=== PATIENT | female | born 1985 | race African-American/Black ===

== ENCOUNTER 2024-08-20 02:07 | Inpatient (IN) | payer SELFPAY ==
[~2024-08-20] VITALS: Ht 175.3 cm; Wt 79.8 kg
[2024-08-20] MEDS: LORAZEPAM 2MG/ML INJ IM STA (02:36)
[2024-08-20] MEDS: DIPHENHYDRAMINE 50MG/ML VIAL IM STA (02:36)
[2024-08-20] MEDS: HALOPERIDOL LACTATE 5MG/ML VIAL IM STA (02:36)
[2024-08-20] MEDS: LORAZEPAM 2MG/ML INJ IM ONE (03:17)
[2024-08-20] MEDS: OLANZAPINE 10 MG/VIAL IM ONE (03:17)
[2024-08-20] MEDS: SODIUM CHLORIDE 0.9% 1,000 ML IV ONE (04:05)
[2024-08-20 04:22] LABS: BASOPHILS % 0.7 % (0.0-2.0); EOSINOPHILS % 0.9 % (0.0-5.0); HEMATOCRIT. 37.1 % (36.0-48.0); LYMPHOCYTES % 12.8 % (20.0-50.0); MEAN CORPUSCULAR HEMOGLOBIN 29.6 pg (28.0-32.0); MEAN CORPUSCULAR HGB CONC 32.5 g/dL (31.0-37.0); MEAN CORPUSCULAR VOLUME 91.3 fL (81.0-99.0); MEAN PLATELET VOLUME 8.8 fl (7.4-10.4); MONOCYTES % 4.1 % (2.0-8.0); NEUTROPHILS % 81.5 % (40.0-76.0); PLATELET 299 x1000/uL (130-400); RED BLOOD CELL COUNT 4.06 mill/uL (4.2-5.4); RED CELL DISTRIBUTION WIDTH 16.9 % (11.6-14.6); WHITE BLOOD COUNT 12.2 x1000/uL (4.5-11.0)
[2024-08-20 04:30] LABS: *AMPHETAMINES SCREEN URINE PRESUMPTIVE POSITIVE (NEGATIVE); *BARBITURATES SCREEN URINE NEGATIVE (NEGATIVE); *BENZODIAZEPINES SCREEN URINE NEGATIVE (NEGATIVE); *COCAINE SCREEN URINE PRESUMPTIVE POSITIVE (NEGATIVE); METHADONE URINE SCREEN NEGATIVE (NEGATIVE); OPIATES URINE SCREEN NEGATIVE (NEGATIVE)
[2024-08-20 04:31] LABS: CANNABINOID URINE SCREEN PRESUMPTIVE POSITIVE (NEGATIVE); ECSTASY MDMA SCREEN URINE CONF.TEST INDICATED (NEGATIVE); PHENCYCLIDINE URINE SCREEN PRESUMTIVE POSITIVE (NEGATIVE)
[2024-08-20 04:36] LABS: CHLORIDE 108 mEq/L (98-107); POTASSIUM 3.9 mEq/L (3.5-5.1); SODIUM 141 mEq/L (136-145)
[2024-08-20 04:37] LABS: CALCIUM 9.7 mg/dL (8.7-10.4); CARBON DIOXIDE 23 mEq/L (21-32)
[2024-08-20 04:42] LABS: CREATININE 0.9 mg/dL (0.6-1.0); UREA NITROGEN BLOOD 15 mg/dL (9-23)
[2024-08-20 04:43] LABS: TROPONIN I HIGH SENSITIVITY 8 ng/L (3.0-34)
[2024-08-20 04:44] LABS: ACETAMINOPHEN < 2 ug/mL (10-30); ALANINE AMINOTRANSFERASE 23 IU/L (10-49); ALBUMIN 4.8 g/dL (3.2-4.8); ASPARTATE AMINOTRANSFERASE 50 IU/L (<34); BILIRUBIN TOTAL 0.4 mg/dL (0.1-1.0); PROTEIN TOTAL 8.4 g/dL (6.0-8.3)
[2024-08-20 04:50] LABS: ETHANOL BLOOD < 10 mg/dL (<10)
[2024-08-20 04:54] LABS: GLUCOSE 41 mg/dL (70-105)
[2024-08-20 04:55] LABS: CREATINE KINASE 2578 IU/L (34-145)
[2024-08-20] MEDS: DEXTROSE 50% WATER 50ML SYRINGE IV ONE (05:01)
[2024-08-20 05:04] LABS: CLARITY URINE CLOUDY (CLEAR); COLOR URINE DARK YELLOW (YELLOW); GLUCOSE URINE NEGATIVE (NEGATIVE); KETONES URINE 2+ (NEGATIVE); LEUKOCYTE ESTERASE URINE NEGATIVE (NEGATIVE); NITRITE URINE NEGATIVE (NEGATIVE); OCCULT BLOOD URINE 3+ (NEGATIVE); PROTEIN URINE 2+ (NEGATIVE); SPECIFIC GRAVITY URINE 1.034 (1.005-1.030)
[2024-08-20 05:05] LABS: HCG SCREEN NEGATIVE
[2024-08-20 05:55] VITALS: O2SAT 99
[2024-08-20 07:19] LABS: SQUAMOUS EPITHELIAL CELL URINE 1+ /lpf (RARE/1+)
[2024-08-20 07:20] LABS: WBC URINE 0-2 /hpf (0-2)
[2024-08-20 07:21] LABS: RBC URINE 50-100 /hpf (0-2)
[2024-08-20 07:22] LABS: BACTERIA URINE NONE SEEN; CALCIUM OXALATE CRYSTALS URINE 1+ /lpf
[2024-08-20] MEDS ORDERED: CLONIDINE 0.1MG TABLET PO PRN (09:45)
[2024-08-20] MEDS ORDERED: IPRATROPIUM/ALBUTEROL 0.5-3(2.5)MG/3ML NEB HHN PRN (09:45)
[2024-08-20] MEDS ORDERED: MAGNESIUM/ALUMINUM HYDROXIDE/SIMETHICONE 30ML UDC PO PRN (09:45)
[2024-08-20] MEDS ORDERED: ONDANSETRON HCL 4MG/2ML INJ IV PRN (09:45)
[2024-08-20] MEDS ORDERED: DOCUSATE SODIUM 100MG CAPSULE PO PRN (09:45)
[2024-08-20] MEDS ORDERED: HYDROCODONE/ACETAMINOPHEN 5/325MG TABLET PO PRN (09:45)
[2024-08-20] MEDS ORDERED: ACETAMINOPHEN 325MG TABLET PO PRN ×2 (09:45)
[2024-08-20] MEDS ORDERED: GUAIFENESIN 200MG/10ML SUGAR FREE UDC PO PRN (09:45)
[2024-08-20] MEDS ORDERED: LORAZEPAM 2MG/ML INJ IV PRN (09:45)
[2024-08-20] MEDS: ENOXAPARIN 40MG/0.4ML SYR SUBCUT SCH (10:15)
[2024-08-20] MEDS: SODIUM CHLORIDE 0.9% 1,000 ML IV SCH (10:16)
[2024-08-20] MEDS: INSULIN LISPRO 100 UNITS/ML SUBCUT SCH (13:20)
[2024-08-20] MEDS: BLOOD SUGAR DIAGNOSTIC STRIP TEST SCH (13:38)
[2024-08-20] MEDS ORDERED: DEXT 5% WATER 500 ML IV NR (14:00)
[2024-08-20] MEDS ORDERED: LORAZEPAM 2MG/ML INJ IM PRN (17:00)
[2024-08-20] MEDS: DEXTROSE 50% WATER 50ML SYRINGE IV PRN (18:00)
[2024-08-20] MEDS: DEXT 5%/0.9% NACL 1,000 ML IV SCH (18:02)
[2024-08-20] MEDS: MVI, ADULT NO.1 10 ML, FOLIC ACID 1 MG, THIAMINE HCL 100 MG in SODIUM CHLORIDE 0.9% 1,0... IV SCH (18:54)
[2024-08-21] VITALS: BP 167/99; PULSE 129; RESP 24; TEMP 36.83628; O2SAT 99
[2024-08-21 04:00] VITALS: BP 152/65; PULSE 129; RESP 20; TEMP 36.6696; O2SAT 98
[2024-08-21 06:22] VITALS: BP 152/65; PULSE 67; RESP 22; TEMP 36.696
[2024-08-21 12:00] VITALS: BP 143/88; PULSE 71; RESP 19; TEMP 36.72516; O2SAT 98
[2024-08-21 16:00] VITALS: BP 144/78; PULSE 81; RESP 18; TEMP 36.05844; O2SAT 97
[2024-08-21 20:00] VITALS: BP 146/83; PULSE 73; RESP 20; TEMP 36.3918; O2SAT 98
[2024-08-22] VITALS: BP 146/71; PULSE 72; RESP 16; TEMP 37.11408; O2SAT 99
[2024-08-22 04:00] VITALS: BP 142/74; PULSE 65; RESP 17; TEMP 36.61404; O2SAT 100
== END 2024-08-22 13:45 | disposition home or self-care (01) | DRG 812 ==
LOC: ER 02:12 → 5WST 06:57 → 7WST 08-21 07:59 → 6EST 08-21 22:05
PROVIDERS: ADMIT Hospitalist; ATTEND Hospitalist
DX: T40.711A Poisoning by cannabis, accidental (unintentional), initial encounter (principal); G92.8 Other toxic encephalopathy; M62.82 Rhabdomyolysis; F29 Unspecified psychosis not due to a substance or known physiological condition; T40.991A Poisoning by other psychodysleptics [hallucinogens], accidental (unintentional), initial encounter; T40.5X1A Poisoning by cocaine, accidental (unintentional), initial encounter; F15.10 Other stimulant abuse, uncomplicated; R00.0 Tachycardia, unspecified; F12.10 Cannabis abuse, uncomplicated; Z20.822 Contact with and (suspected) exposure to COVID-19; F14.10 Cocaine abuse, uncomplicated; F16.10 Hallucinogen abuse, uncomplicated; F41.9 Anxiety disorder, unspecified; D72.829 Elevated white blood cell count, unspecified; E16.2 Hypoglycemia, unspecified; Y92.89 Other specified places as the place of occurrence of the external cause; Z78.1 Physical restraint status; Z71.51 Drug abuse counseling and surveillance of drug abuser
CPT/HCPCS: 36415; 80053; 80305; 80307; 80320; 80329; 81003; 82550; 82962; 83036; 84484; 84703; 85025; 87426; 93005; 99285; J1200; J1630; J1650; J2060; J3411; J3490; J7030; G0480